=== PATIENT | female | born 1990 | race Caucasian/White ===

== ENCOUNTER 2021-04-10 14:46 | Outpatient (REF) | payer OTHER, SELFPAY ==
[2021-04-10 18:17] LABS: MANUAL DIFF FLAG NO
[2021-04-10 18:22] LABS: Basophils Percent Auto 0.4 % (0-2); Eosinophils Percent Auto 0.5 % (0-4); Hematocrit 42.4 % (37.0-47.0); Hemoglobin 14.4 g/dl (12.0-16.0); Imm Gran Abs Auto 0.01 X10*3/uL (0.00-0.03); Imm Gran Pct Auto 0.2 % (0.0-0.4); Lymphocytes Absolute Auto 1.9 X10*3/uL (1.2-4.9); Lymphocytes Percent Auto 33.6 % (20-40); Mean Corpuscular Hemoglobin 30.6 pg (27.0-33.0); Mean Corpuscular Volume 90.2 fL (80.0-98.0); Mean Platelet Volume 11.1 fL (9.4-12.3); Monocytes Absolute Auto 0.3 X10*3/uL (0.1-1.2); Monocytes Percent Auto 5.8 % (2-11); Neutrophils Absolute Auto 3.3 x10*3/uL (2.0-8.3); Neutrophils Percent Auto 59.5 % (45-73); Platelet Count 200 X10*3/uL (160-400); Red Cell Distribution Width 11.2 % (11.0-16.0); White Blood Count 5.5 X10*3/uL (4.8-10.8)
[2021-04-10 18:30] LABS: Estimated Average Glucose 103 mg/dL; Hemoglobin A1c % 5.2 %
[2021-04-10 18:32] LABS: Alanine Aminotransferase 11 U/L (0-31); Albumin Level 4.5 g/dL (3.5-5.0); Alkaline Phosphatase 40 U/L (39-117); Anion Gap 11 (12-20); Aspartate Amino Transferase 14 U/L (5-31); Bilirubin Total 0.4 mg/dL (0.0-1.0); Blood Urea Nitrogen 10 mg/dL (9-16); Calcium 9.4 mg/dL (8.4-10.2); Carbon Dioxide 26 mmol/L (22-29); Chloride 105 mmol/L (96-108); Estimated Glomerular Filt Rate > 60; Glucose Random 95 mg/dL (60-115); Potassium 3.9 mmol/L (3.3-5.1); Sodium 138 mmol/L (135-145); Total Protein 6.9 g/dL (6.5-8.0)
[2021-04-10 18:54] LABS: Thyroid Stimulating Hormone 1.81 uIU/mL (0.32-4.0); Vitamin D 25-OH Total 33.5 ng/mL (>30)
== END 2021-04-10 14:47 | disposition home or self-care (01) ==
LOC: HO.MANLDS 14:46
PROVIDERS: PCP Physician Assistant; Visit Provider Physician Assistant
DX: Z00.00 Encounter for general adult medical examination without abnormal findings (principal)
CPT/HCPCS: 36415; 80053; 82306; 83036; 84439; 84443; 85025

== ENCOUNTER 2022-03-19 10:16 | Outpatient (REF) | payer OTHER, SELFPAY ==
[2022-03-19 14:55] LABS: Alanine Aminotransferase 12 U/L (0-31); Albumin Level 4.4 g/dL (3.5-5.0); Alkaline Phosphatase 39 U/L (39-117); Anion Gap 11 (12-20); Aspartate Amino Transferase 14 U/L (5-31); Bilirubin Total 0.4 mg/dL (0.0-1.0); Blood Urea Nitrogen 10 mg/dL (9-16); Calcium 9.2 mg/dL (8.4-10.2); Carbon Dioxide 27 mmol/L (22-29); Chloride 105 mmol/L (96-108); Estimated Glomerular Filt Rate > 60; Glucose Random 107 mg/dL (60-115); Potassium 4.3 mmol/L (3.3-5.1); Sodium 139 mmol/L (135-145); Total Protein 6.5 g/dL (6.5-8.0)
[2022-03-19 15:16] LABS: Thyroid Stimulating Hormone 1.24 uIU/mL (0.32-4.0)
[2022-03-19 15:23] LABS: Vitamin B12 684 pg/mL (200-900)
[2022-03-22 08:36] LABS: Follicle Stimulating Hormone 8.9 mIU/mL; Lutenizing Hormone 4.4 mIU/mL
[2022-03-24 13:39] LABS: Lamotrigine Lamictal <0.5 mcg/mL (4.0-18.0)
[2022-03-26 15:23] LABS: Progesterone 0.3 ng/mL
[2022-04-01 04:18] LABS: Estradiol Free 1.32 pg/mL; Estradiol, Ultrasensitive 88 pg/mL
== END 2022-03-19 10:17 | disposition home or self-care (01) ==
LOC: HO.WFDLDS 10:16
PROVIDERS: Absent Provider Internal Medicine; Visit Provider Physician Assistant
DX: R53.83 Other fatigue (principal); G40.009 Localization-related (focal) (partial) idiopathic epilepsy and epileptic syndromes with seizures of localized onset, not intractable, without status epilepticus
CPT/HCPCS: 36415; 80053; 80175; 82607; 82670; 82681; 83001; 83002; 84144; 84443

== ENCOUNTER 2022-06-30 10:09 | Outpatient (REF) | payer OTHER, SELFPAY ==
[2022-07-05 09:03] LABS: Levetiracetam Keppra 9.9 mcg/mL (6.0-46.0)
== END 2022-06-30 10:10 | disposition home or self-care (01) ==
LOC: HO.WFDLDS 10:09
PROVIDERS: Visit Provider Internal Medicine
DX: G40.909 Epilepsy, unspecified, not intractable, without status epilepticus (principal); Z79.899 Other long term (current) drug therapy
CPT/HCPCS: 36415; 80177

== ENCOUNTER 2023-01-27 08:00 | Outpatient (REF) | payer OTHER, SELFPAY ==
[2023-01-27 12:23] LABS: Blood Urea Nitrogen 14 mg/dL (9-16); Estimated Glomerular Filt Rate > 60
[2023-01-31 23:39] LABS: Levetiracetam Keppra 3.7 mcg/mL (6.0-46.0)
== END 2023-01-27 08:01 | disposition home or self-care (01) ==
LOC: HO.WFDLDS 08:00
PROVIDERS: Visit Provider Psychiatry & Neurology Neurology
DX: R56.9 Unspecified convulsions (principal)
CPT/HCPCS: 36415; 80177; 82565; 84520

== ENCOUNTER 2023-03-09 08:34 | Outpatient (REF) | payer OTHER, SELFPAY ==
[2023-03-09 14:36] LABS: Free T4 (Free Thyroxine) 0.91 ng/dL (0.71-1.85); Thyroid Stimulating Hormone 1.42 uIU/mL (0.32-4.0)
== END 2023-03-09 08:35 | disposition home or self-care (01) ==
LOC: HO.MANLDS 08:34
PROVIDERS: Visit Provider Physician Assistant
DX: E03.9 Hypothyroidism, unspecified (principal)
CPT/HCPCS: 36415; 84439; 84443

== ENCOUNTER 2023-05-04 09:46 | Outpatient (REF) | payer OTHER, SELFPAY ==
[2023-05-04 13:03] LABS: MANUAL DIFF FLAG NO
[2023-05-04 13:29] LABS: Basophils Percent Auto 0.6 % (0-2); Eosinophils Absolute Auto 0.1 X10*3/uL (0.0-0.4); Eosinophils Percent Auto 1.3 % (0-4); Hematocrit 43.9 % (37.0-47.0); Hemoglobin 14.7 g/dl (12.0-16.0); Imm Gran Abs Auto 0.01 X10*3/uL (0.00-0.03); Imm Gran Pct Auto 0.2 % (0.0-0.4); Lymphocytes Absolute Auto 1.7 X10*3/uL (1.2-4.9); Mean Corpuscular HGB Conc 33.5 g/dl (31.0-35.0); Mean Corpuscular Hemoglobin 30.8 pg (27.0-33.0); Mean Corpuscular Volume 91.8 fL (80.0-98.0); Mean Platelet Volume 10.5 fL (9.4-12.3); Monocytes Absolute Auto 0.3 X10*3/uL (0.1-1.2); Monocytes Percent Auto 6.5 % (2-11); Neutrophils Absolute Auto 2.7 x10*3/uL (2.0-8.3); Neutrophils Percent Auto 56.4 % (45-73); Platelet Count 229 X10*3/uL (160-400); Red Blood Count 4.78 X10*6/uL (4.20-5.50); Red Cell Distribution Width 11.9 % (11.0-16.0); White Blood Count 4.8 X10*3/uL (4.8-10.8)
[2023-05-04 13:43] LABS: Alanine Aminotransferase 29 U/L (0-31); Albumin Level 4.7 g/dL (3.5-5.0); Alkaline Phosphatase 47 U/L (39-117); Anion Gap 12 (12-20); Aspartate Amino Transferase 26 U/L (5-31); Bilirubin Total 0.3 mg/dL (0.0-1.0); Blood Urea Nitrogen 13 mg/dL (9-16); Calcium 9.6 mg/dL (8.4-10.2); Carbon Dioxide 27 mmol/L (22-29); Chloride 106 mmol/L (96-108); Cholesterol 173 mg/dL (<200); Estimated Glomerular Filt Rate > 60; Glucose Random 88 mg/dL (60-115); HDL Cholesterol 69 mg/dL (>40); Iron 134 mcg/dL (30-160); LDL Cholesterol Calculated 97 mg/dL (<100); Percent Iron Saturation 48 % (15-50); Potassium 4.5 mmol/L (3.3-5.1); Sodium 140 mmol/L (135-145); Total Iron Binding Capacity 281 mcg/dL (228-428); Total Protein 7.6 g/dL (6.5-8.0); Triglycerides 35 mg/dL (<150); Unsaturated Iron Binding 147 ug/dL
[2023-05-04 13:49] LABS: Ferritin 36 ng/mL (10-122); Vitamin D 25-OH Total 77.1 ng/mL (>30)
[2023-05-04 15:07] LABS: Estimated Average Glucose 91 mg/dL; Hemoglobin A1c % 4.8 % (<6.0)
[2023-05-05 12:45] LABS: DHEA Sulfate 125 mcg/dL (19-237); Follicle Stimulating Hormone 8.1 mIU/mL; Lutenizing Hormone 7.2 mIU/mL; Prolactin 5.9 ng/mL
[2023-05-10 16:59] LABS: Progesterone 0.1 ng/mL
[2023-05-12 12:04] LABS: Testosterone, Total 51 ng/dL (2-45)
[2023-05-15 04:53] LABS: Estradiol Free 0.88 pg/mL; Estradiol, Ultrasensitive 63 pg/mL
== END 2023-05-04 09:47 | disposition home or self-care (01) ==
LOC: HO.MANLDS 09:46
PROVIDERS: Visit Provider Physician Assistant
DX: Z00.00 Encounter for general adult medical examination without abnormal findings (principal); N94.6 Dysmenorrhea, unspecified
CPT/HCPCS: 36415; 80053; 80061; 82306; 82627; 82670; 82681; 82728; 83001; 83002; 83036; 83540; 84144; 84146; 84403; 85025

== ENCOUNTER 2024-11-13 09:08 | Outpatient (REF) | payer OTHER, SELFPAY ==
--- OUTSIDE RECORDS SUMMARY | 2024-11-13 10:40 | XMS_ITS | Encounter Summary ---
Author Organization [facility] Address [address] [facility] [address] [place] [address] Phone Care Team Providers Care Cardiology Physician Name Role Phone Nicola Navarro Primary Care Provider [phone] Encounter Details Date Type Department Care Team (Late st Contact Info) Description 07/09/2021 Procedure Pass [facility], Ct Scan - [address] [address] Social History Tobacco Use Types Packs/Day Years Used Date Smoking Tobacco: Never Smokeless Tobacco: Never Alcohol Use Standard Drinks/Week Comments Never 0 (1 standard drink = 0.6 oz pur e alcohol) Comments No Sex and Gender Information Value Date Recorded Sex Assigned at Female 05/12/2021 9:42 AM EDT Legal Sex Female 10:26 PM EDT Gender Identity Female 05/12/2021 9:42 AM EDT Sexual Orientation Not on file documented as of this encounter Functional Status * Calculated C-SSRS Risk Score (Lifetime/Recent) Answer Date of Assessment Author No Risk Indicated 07/09/2021 12:11 PM EDT Sanjuana Lake CNP * [place] Suicide Severity Rating Scale (Screener/Recent Self-Report) Question Answer Date of Assessment Author 1. Wish to be (Past 1 Month) No 07/09/2021 12:11 PM EDT Sanjuana Lake CNP 2. Non-Specific Active Suicidal Thoughts (Past 1 Month) No 07/09/2021 12:11 PM EDT Sanjuana Lake CNP 6. Suicidal Behavior (Lifetime) No 07/09/2021 12:11 PM EDT Sanjuana Lake, SADIE documented as of this encounter Plan of Treatment Not on file documented as of this encounter Visit Diagnoses Not on filedocumented in this encounter Care Teams Cardiology Physician Relationship Specialty Start Date End Date Nicola Navarro DO [email or web address] PCP - General Internal Medicine 05/12/21 documented as of this encounter Additional Source Comments The information contained in this document represents components of the legal health record. It is not the complete legal health record.[facility]
--- OUTSIDE RECORDS SUMMARY | 2024-11-13 10:40 | XMS_ITS | Encounter Summary ---
Author Organization [facility] Address [address] [address] Phone Care Team Providers Care Recorder Of Deeds Name Role Phone Tysontavo Nicola Robb CASTAÑEDA Primary Care Provider [phone] Reason for Referral * MRI/CAT Scan - Closed Specialty Diagnoses / Procedures Referred By Dudley coronado Referred To Contact Radiology Diagnoses Nonintractable epilepsy without status epilepticus, unspecified epilepsy type Procedures MRI Brain CHG MRI BRAIN CHG MRI BRAIN COMBO CHG MRI BRAIN CONTRAST Tony Vega MD [address] [place] [address], [address] [place] [address] Phone: tel: fax: [email or web address] Referral ID Status Reason Start Date Expiration Date Visits Re quested Visits Authorized [id number] Closed 02/03/2023 05/04/2023 1 1 Encounter Details Date Type Department Care Team (Latest Contact Info) Description 02/03/2023 Transcribe Orders Virtual Department [address] [place] [address] Tony Vega MD [address] [place] [address], [address] [place] [address] [email or web address] Nonintractable epilepsy without status epilepticus, unspecified epilepsy type (Primary Dx) Social History Tobacco Use Types Packs/Day Years Used Date Smoking Tobacco: Never Smokeless Tobacco: Never Alcohol Use Standard Drinks/Week Comments Never 0 (1 standard drink = 0.6 oz pur e alcohol) Education Answer Date Recorded Are you interested in more education? Not on anup e 06/18/2022 Are you concerned about learning? Not on file 06/18/2022 No 06/18/2022 No 06/18/2022 Digital Access Answer Date Recorded No 07/17/2022 No 07/17/2022 Reliable internet access at home? Not on file 07/17/2022 Device with a working camera? Not on file Comments No Sex and Gender Information Value Date Recorded Sex Assigned at Female 05/12/2021 9:42 AM EDT Legal Sex Female 10:26 PM EDT Gender Identity Female 05/12/2021 9:42 AM EDT Sexual Orientation Not on file documented as of this encounter Plan of Treatment Not on file documented as of this encounter Results * MRI BRAIN (SEIZURE) WITH AND WITHOUT CONTRAST (02/28/2023 7:54 AM EST) Anatomical Region Laterality Modality Head Magnetic Resonan ce 02/28/2023 5:19 PM EST Impressions 02/28/2023 8:00 PM EST No clear intracranial epileptogenic focus identified. Narrative 02/28/2023 8:00 PM EST MRI BRAIN (SEIZURE) WITH AND WITHOUT CONTRAST Referring clinician's provided indication for this examination in [facility]: Outside Radiology Order; WORSENING EPILEPSY TECHNIQUE: Multi-sequence, multi-planar MRI of the brain was performed before and after intravenous contrast: Seizure protocol 3T. COMPARISON: None FINDINGS: Brain Parenchyma: Left cerebellar and right frontal DVAs. No evidence of acute infarct, mass lesion, or hemorrhage. No definite evidence of mesial temporal sclerosis based on axial images. Ventricular System and Extra-Axial Spaces: Normal. No evidence of midline shift or hydrocephalus. Extracranial Structures: Arterial flow voids in the skull base are present. Procedure Note Shravan Luque MD - 02/28/2023 MRI BRAIN (SEIZURE) WITH AND WITHOUT CONTRAST Referring clinician's provided indication for this examination in [facility]:Outside Radiology Order; WORSENING EPILEPSY TECHNIQUE: Multi-sequence, multi-planar MRI of the brain was performedbefore and after intravenous contrast: Seizure protocol 3T. COMPARISON: None FINDINGS: Brain Parenchyma: Left cerebellar and right frontal DVAs. No evidence ofacute infarct, mass lesion, or hemorrhage. No definite evidence of mesialtemporal sclerosis based on axial images. Ventricular System and Extra-Axial Spaces: Normal. No evidence of midlineshift or hydrocephalus. Extracranial Structures: Arterial flow voids in the skull base arepresent. IMPRESSION: No clear intracranial epileptogenic focus identified. Tony Vega MD IMG MR HEAD/NECK Final Resul t documented in this encounter Visit Diagnoses Diagnosis Nonintractable epilepsy without status epilepticus, unspecified epilepsy type- Primary Nonintractable epilepsy without status epilepticus, unspecified epilepsy type documented in this encounter Care Teams Recorder Of Deeds Relationship Specialty Start Date End Date Nicola Navarro DO [email or web address] PCP - General Internal Medicine 05/12/21 documented as of this encounter Additional Source Comments The information contained in this document represents components of the legal health record. It is not the complete legal health record.[facility]
--- OUTSIDE RECORDS SUMMARY | 2024-11-13 10:40 | XMS_ITS | Clinical Summary ---
Author Organization [facility] Address [address] [address] Phone Care Team Providers Care Hand Salter Name Role Phone Nicola Navarro Primary Care Provider [phone] Allergies No known active allergies Medications vitamin D3-vitamin K2 25 mcg (1,000 unit)-90 mcg ODT disintegrating tablet Vitamin D3 Active calcium carbonate-vitamin D3 625 mg (250 elemental)-125 units Tab Take 1 tablet by mouth daily. Active amoxicillin-clavula tamie (AUGMENTIN) 875-125 mg per tablet Take 1 tablet by mouth every 12 (twelve) hours. Active levETIRAcetam (KEPPRA) 500 MG tablet Take 500 mg by mouth. 3 Active sertraline (ZOLOFT) 100 MG tablet Take 100 mg by mouth nightly at bedtime. at bedtime. Active LORazepam (ATIVAN) 0.5 MG tablet Take 0.5 mg by mouth daily. 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 Assessment & Plan (07/01/2023 12:33 PM EDT): Patient has been evaluated by neurology Seizure activity during luteal phase of menstrual cycle Patient currently on Keppra Discussed ovulation suppression with either continuous OCPs, Aygestin, or Depo-Provera Patient not interested in hormonal medications at this time She will continue to discuss management with her neurologist and follow up once she has made a decision regarding hormonal management Immunizations Immunization Administration Dates Next Due COVID-19 (Pre-12/13) Pfizer Vaccine, mRNA, PF 02/04/2021,02/04/2021,07/16/2020,2020 Rabies Fibroblast Culture 05/26/2021,,05/15/2021,2021 Rabies Immune Globulin 05/12/2021 Tdap 05/12/2021,05/12/2021 Social History Tobacco Use Types Packs/Day Years [...] AM EDT Sexual Orientation Not on file Last Filed Vital Signs Vital Sign Reading Time Taken Comments Blood Pressure 100/60 07/01/2023 9:29 AM EDT Pulse 83 07/09/2021 7:19 PM EDT Temperature 36.6 C (97.9 F) 07/09/2021 7:19 PM EDT Respiratory Rate 18 07/09/2021 7:19 PM EDT Oxygen Saturation 100% 07/09/2021 7:19 PM EDT Inhaled Oxygen Concentration - - Weight 78.2 kg (172 lb 6.4 oz) 07/01/2023 9:29 A M EDT Height 165.1 cm (5' 5 ) 07/01/2023 9:29 AM EDT Body Mass Index 28.69 07/01/2023 9:29 AM EDT Plan of Treatment Health Maintenance Due Date Last Done Comments DEPRESSION SCREENING 2001 HEPATITIS C SCREENING 2007 HIV ONE-TIME SCREENING (18-65 YEARS) 2007 SCREENING FOR DIABETES 07/09/2024 07/09/2021 INFLUENZA VACCINE (#1) 2024 COVID-19 VACCINE ( season) 2024 02/04/2021, 02/04/2021, 07/16/2020, Additional history exists PAP SMEAR 06/30/2026 07/01/2023 Adult Td,Tdap Booster 05/13/2031 05/12/2021, 022 SMOKING STATUS SCREENING (Once After 26 Yrs) Completed 07/01/2023 HEPATITIS A VACCINES Aged Out No long er eligible based on patient's age to complete this topic HIB VACCINES Aged Out No longer eligi ble based on patient's age to complete this topic MENINGOCOCCAL VACCINES (ACWY) Aged Out No longer eligible based on patient's age to complete this topic MENINGOCOCCAL VACCINES (B) Aged Out N o longer eligible based on patient's age to complete this topic PNEUMOCOCCAL VACCINES (0-49 years) Aged Out No longer eligible based on patient's age to complete this topic Medical Devices Not on file Procedures Procedure Name Priority Date/Time Associated Diagnosis Comments PAP TEST Routine 07/01/2023 12:00 AM EDT from Last 3 Months or Most Recently Relevant to Health Maintenance Results * Pap Test (07/01/2023 12:00 AM EDT) 07/01/2023 07/04/2023 9:3 9 AM EDT Narrative SEE NARRATIVE - 07/08/2023 2:15 [place] [address] Independent Consultant: Juanita Irvin MD BILLIARD TABLE REPAIRER Cytology Report FINAL DIAGNOSIS A. PAP SMEAR (THIN PREP) CE: SPECIMEN ADEQUACY: Satisfactory for evaluation; transformation zone present. INTERPRETATION: NEGATIVE FOR INTRAEPITHELIAL LESION OR MALIGNANCY. This specimen was analyzed by the automated ThinPrep Imaging System ([id number].) and the selected adam were reviewed by a rail car driver. Electronically Signed Out By: PRANAY Mercer(ASCP) The Pap test is a screening test primarily for squamous cancers and precursors and has associated false-negative and false-positive results. New technologies such as liquid-based preparations may decrease but will not eliminate all false-negative results. Regular sampling and follow-up of unexplained clinical signs and symptoms are recommended to minimize false negative results. PROCEDURES/ADDENDA HPV Testing (Requested) Ordered Date: 07/04/2023 A. PAP SMEAR (THIN PREP) CE: Human Papilloma Virus Test NEGATIVE for high-risk Human Papilloma Virus types 16, 18, 45 and the Other high risk probe set (Includes 31, 33, 35, 39, 51, 52, 56, 58, 59, 66, 68) Note: Testing performed by PredictAd HR-HPV analysis. Clinical correlation is advised. This HPV test was performed at [facility], [address] [place] [address]. This test has been FDA approved for both SurePath and ThinPrep cervical cytology specimens. The accuracy and precision of this test for all other specimen sources has been verified in the Cytopathology Laboratory of the [facility] and has not been cleared or approved by the U.S. Food and Drug Administration. Clinical correlation is advised. CLINICAL HISTORY Date of Last Menstrual Period: 06-22-2023 Other Clinical Conditions: Screening Pap SPECIMEN SOURCE A: PAP SMEAR (THIN PREP) CE Patient Name: SAMARIA CEBALLOS : 1990 (Age: 33) Sex: F Institution: [facility] Location: [facility] Date of Collection: 07/01/2023 Date of Reported: 07/08/2023 14:15 Results to: Leslie Gonzales us Leslie Ramos MD CYTOLOGY ORDER SOLEDAD Final Result SEE NARRATIVE from Last 3 Months or Most Recently Relevant to Health Maintenance Insurance [facility] DIRECT [employer] [place] [address] [place] [address] [place] [address] [place] [address] [employer] [place] [address] [place] [address] [place] [address] [place] [address] [employer] DIRECT [employer] DIRECT [employer] DIRECT Care Teams Hand Salter Relationship Specialty Start Date End Date Nicola Navarro DO [email or web address] PCP - General Internal Medicine 05/12/21 Additional Source Comments The information contained in this document represents components of the legal health record. It is not the complete legal health record.[facility]
--- OUTSIDE RECORDS SUMMARY | 2024-11-13 10:40 | XMS_ITS | Encounter Summary ---
Author Organization [facility] Address [address] [address] Phone Care Team Providers Care Consulting Psychiatrist Name Role Phone Tysontavo Nicola Robb CASTAÑEDA Primary Care Provider [phone] Reason for Referral * MRI/CAT Scan - Closed Specialty Diagnoses / Procedures Referred By Dudley t Referred To Contact Radiology Diagnoses Localization-related (focal) (partial) idiopathic epilepsy and epileptic syndromes with seizures of localized onset, not intractable, without status epilepticus Procedures MRI Brain CHG MRI BRAIN CHG MRI BRAIN COMBO CHG MRI BRAIN CONTRAST Brittani Carter PA Phone: tel: fax: Referral ID Status Reason Start Date Expiration Date Visits Re quested Visits Authorized [id number] Closed 07/31/2021 10/29/2021 1 1 Encounter Details Date Type Department Care Team (Latest Contact Info) Description 07/24/2021 Transcribe Orders Virtual Department [address] [place] [address] Brittani Carter PA [address] [facility] [place] [address] [place] [address] Localization-related (focal) (partial) idiopathic epilepsy and epileptic syndromes with seizures of localized onset, not intractable, without status epilepticus (Primary Dx) Social History Tobacco Use Types [...] of this encounter Results * MRI BRAIN WITHOUT CONTRAST (08/09/2021 8:21 AM EDT) Anatomical Region Laterality Modality Head Magnetic Resonan ce 08/10/2021 9:18 AM EDT Impressions 08/10/2021 9:30 AM EDT Normal study of the brain. No significant changes from 09/01/2009. Narrative 08/10/2021 9:30 AM EDT HISTORY: Seizure, hallucinations, history of partial seizures for 10 years. COMPARISON: MRI brain 09/01/2009. TECHNIQUE: Exam performed on a 1.5 Linda high-field MRI scanner. Axial T1, T2, T2*, T2 FLAIR and diffusion-weighted imaging with ADC map, sagittal T1 sequences were obtained. FINDINGS: No evidence of intracranial hemorrhage or acute ischemia. No intracranial masses. No suspicious white matter signal abnormalities. The ventricles remain normal in size and configuration. Basal cisterns are patent. Normal flow-voids the base of the skull. The paranasal sinuses and mastoid air cells are clear. No other significant changes. Procedure Note Marky Reyes MD - 08/10/2021 HISTORY: Seizure, hallucinations, history of partial seizures for 10years. COMPARISON: MRI brain 09/01/2009. TECHNIQUE: Exam performed on a 1.5 Linda high-field MRI scanner. AxialT1, T2, T2*, T2 FLAIR and diffusion-weighted imaging with ADC map,sagittal T1 sequences were obtained. FINDINGS: No evidence of intracranial hemorrhage or acute ischemia. No intracranialmasses. No suspicious white matter signal abnormalities. The ventricles remain normal in size and configuration. Basal cisterns arepatent. Normal flow-voids the base of the skull. The paranasal sinuses and mastoid air cells are clear. No other significant changes. IMPRESSION: Normal study of the brain. No significant changes from 09/01/2009. Brittani FISH IMG MR HEAD/NECK Final Resu lt documented in this encounter Visit Diagnoses Diagnosis Localization-related (focal) (partial) idiopathic epilepsy and epileptic syndromes with seizures of localized onset, not intractable, without status epilepticus- Primary Localization-related (focal) (partial) idiopathic epilepsy and epileptic syndromes with seizures of localized onset, not intractable, without status epilepticus documented in this encounter Care Teams Consulting Psychiatrist Relationship Specialty Start Date End Date Nicola Navarro DO [email or web address] PCP - General Internal Medicine 05/12/21 documented as of this encounter Additional Source Comments The information contained in this document represents components of the legal health record. It is not the complete legal health record.[facility]
--- OUTSIDE RECORDS SUMMARY | 2024-11-13 10:40 | XMS_ITS | Encounter Summary ---
Author Organization [facility] Address [address] [facility] [address] [place] [address] Phone Care Team Providers Care Silk Trimmer Name Role Phone Nicola Navarro DO Primary Care Provider [phone] Encounter Details Date Type Department Care Team (Late st Contact Info) Description 07/24/2021 Procedure Pass [facility], [address] [address] Social History Tobacco Use Types Packs/Day Years [...] on filedocumented in this encounter Care Teams Silk Trimmer Relationship Specialty Start Date End Date Nicola Navarro DO PCP - General Internal Medicine 05/12/21 documented as of this encounter Additional Source Comments The information contained in this document represents components of the legal health record. It is not the complete legal health record.[facility]
--- OUTSIDE RECORDS SUMMARY | 2024-11-13 10:40 | XMS_ITS | Encounter Summary ---
Author Organization [facility] Address [address] [facility] [address] [place] [address] Phone Care Team Providers Care Phd Internship Name Role Phone Nicola Navarro DO Primary Care Provider [phone] Encounter Details Date Type Department Care Team (Late st Contact Info) Description 02/03/2023 Procedure Pass [facility], [address] [address] Social History Tobacco Use Types Packs/Day Years [...] on filedocumented in this encounter Care Teams Phd Internship Relationship Specialty Start Date End Date Nicola Navarro DO [email or web address] PCP - General Internal Medicine 05/12/21 documented as of this encounter Additional Source Comments The information contained in this document represents components of the legal health record. It is not the complete legal health record.[facility]
--- OUTSIDE RECORDS SUMMARY | 2024-11-13 10:40 | XMS_ITS | Encounter Summary ---
Author Organization [facility] Address [address] [facility] [address] [place] [address] Phone Care Team Providers Care Binder Stripper Machine Name Role Phone Nicola Navarro Primary Care Provider [phone] Encounter Details Date Type Department Care Team (Late st Contact Info) Description 07/09/2021 Procedure Pass [facility], Ct Scan - [address] [address] Social History Tobacco Use Types Packs/Day Years [...] 12:11 PM EDT Sanjuana Lake CNP * [place] Suicide Severity Rating Scale (Screener/Recent Self-Report) Question [...] on filedocumented in this encounter Care Teams Binder Stripper Machine Relationship Specialty Start Date End Date Nicola Navarro DO [email or web address] PCP - General Internal Medicine 05/12/21 documented as of this encounter Additional Source Comments The information contained in this document represents components of the legal health record. It is not the complete legal health record.[facility]
--- OUTSIDE RECORDS SUMMARY | 2024-11-13 10:40 | XMS_ITS | Encounter Summary ---
Author Organization [facility] Address [address] [address] Phone Care Team Providers Care Ground Support Agent Name Role Phone Nicola Navarro Primary Care Provider [phone] Reason for Referral * Hospital - Outpatient - Closed Specialty Diagnoses / Procedures Referred By Dudley coronado Referred To Contact Diagnoses Seizure disorder Procedures EEG Brittani Carter PA Phone: tel: fax: Referral ID Status Reason Start Date Expiration Date Visits Re quested Visits Authorized [id number] Closed 07/24/2021 07/24/2022 1 1 Encounter Details Date Type Department Care Team (Latest Contact Info) Description 07/24/2021 Transcribe Orders Virtual Department [address] [place] [address] Brittani Carter PA [address] [place] [address] Seizure disorder (Primary Dx) Social History Tobacco Use Types [...] documented as of this encounter Results * EEG (08/06/2021 2:10 PM EDT) Anatomical Region Laterality Modality EEG Narrative 08/09/2021 10:32 PM EDT [facility] ELECTROENCEPHALOGRAPHY (EEG) LAB INTRODUCTION: The patient is a 31 year old woman referred for a question of seizures. MEDICATIONS: keppra CONDITION OF RECORDING: Digitally recorded EEG with the patient awake, drowsy and asleep with no instructions for sleep deprivation. All electrodes were applied in accordance with the International 10-20 System. A single channel EKG lead was recorded to help identify artifact. SPECIAL PROCEDURES: None. EEG DESCRIPTION: Cerebral electrical activity with the patient awake was characterized by a well organized background with a 11-12 Hz, 30-60 uV posterior maximum reactive alpha rhythm and lower voltage frontally maximum beta activity. Intermittent arrhythmic 10-30 uV theta and delta activity was admixed. The patient became drowsy but did not enter stage II sleep. Photic stimulation yielded a modest driving response. Hyperventilation was not performed. INTERPRETATION: This routine EEG, obtained with the patient awake and drowsy, is within normal limits. No epileptiform activity or persistent focal asymmetries occurred. COMMENT: If an epileptic seizure disorder is still suspected, more prolonged EEG recording such as 24 hour ambulatory EEG monitoring may be useful. Evens Ruiz MD [facility] Neurology Brittani FISH NEUROLOGY ORDERABLES Final Result documented in this encounter Visit Diagnoses Diagnosis Seizure disorder- Primary Unspecified epilepsy without mention of intractable epilepsy Seizure disorder Unspecified epilepsy without mention of intractable epilepsy documented in this encounter Care Teams Ground Support Agent Relationship Specialty Start Date End Date Nicola Navarro DO [email or web address] PCP - General Internal Medicine 05/12/21 documented as of this encounter Additional Source Comments The information contained in this document represents components of the legal health record. It is not the complete legal health record.[facility]
--- OUTSIDE RECORDS SUMMARY | 2024-11-13 10:40 | XMS_ITS | Clinical Summary ---
Author Organization [facility] Address [address] [place] [address] Care Team Providers Care Cable Splicer Assistant Name Role Phone Nicola Navarro Primary Care Provider [phone] Allergies No known active allergies Medications LORazepam (ATIVAN) 0.5 mg tablet Take 0.5 mg by mouth daily as needed for seizures. 03/21/2023 Active sertraline (ZOLOFT) 100 mg tablet Take 100 mg by mouth once a day. 03/03/2023 Active calcium carbonate-vitami n D3 250 mg-125 units tablet tablet Take 1 tablet by mouth once a day. Active Social History Tobacco Use Types Packs/Day Years Used Date Smoking Tobacco: Never Assessed Comments Unknown Sex and Gender Information Value Date Recorded Sex Assigned at Female 04/14/2023 10:05 AM EST Legal Sex Female 7:50 AM EST Gender Identity Female 04/14/2023 10:05 AM EST Sexual Orientation Lesbian or Sam 04/14/2023 10 :05 AM EST Last Filed Vital Signs Vital Sign Reading Time Taken Comments Blood Pressure 128/84 04/12/2023 1:16 PM EST Pulse 62 04/12/2023 1:16 PM EST Temperature 36.2 C (97.1 F) 04/12/2023 1:16 PM EST Respiratory Rate 20 04/12/2023 1:16 PM EST Oxygen Saturation - - Inhaled Oxygen Concentration - - Weight 75.8 kg (167 lb) 04/12/2023 1:16 PM EST Height - - Body Mass Index - - Plan of Treatment Health Maintenance Due Date Last Done Comments Cervical Cancer Screening 1989 HIV Screening 1989 HPV and Pap Smear 1989 Hepatitis C Screening 1989 Pap Smear 1989 Varicella Vaccines (1 of 2 - 13+ 2-dose series) 2002 Hepatitis B Vaccines (1 of 3 - 19+ 3-dose series) 2008 Alcohol/Substance Use Screening 02/22/2024 Depression Screening and Follow-Up 02/22/2024 Social Drivers of Health Annual Screening 02/22/2024 COVID-19 Vaccine (3 - 2024-2 6 season) 2024 02/04/2021, 07/16/2020 Influenza Vaccine (#1) 2024 DTaP,Tdap,and Td Vaccines (2 - Td or Tdap) 05/13/2031 05/12/2021 RSV Vaccine (60+ years old and patients) (1 - 1-dose 75+ series) 2064 Pneumococcal Vaccine: Pediatric (0-5 Years) and At-Risk Patients (6-50 Years) Aged Out No longer eligible based on patient's age to complete this topic Insurance [facility] Care Teams Cable Splicer Assistant Relationship Specialty Start Date End Date Nicola Navarro [address] [place] [id number] PCP - General Internal Medicine 02/03/23
[2024-11-13 14:25] LABS: Alanine Aminotransferase 18 U/L (0-31); Albumin Level 4.3 g/dL (3.5-5.0); Alkaline Phosphatase 41 U/L (39-117); Anion Gap 8 (12-20); Aspartate Amino Transferase 22 U/L (5-31); Blood Urea Nitrogen 13 mg/dL (9-16); Calcium 8.8 mg/dL (8.4-10.2); Carbon Dioxide 26 mmol/L (22-29); Chloride 111 mmol/L (96-108); Estimated Glomerular Filt Rate > 60; Potassium 3.8 mmol/L (3.3-5.1); Sodium 141 mmol/L (135-145); Total Protein 6.5 g/dL (6.5-8.0)
== END 2024-11-13 09:09 | disposition home or self-care (01) ==
LOC: HO.MANLDS 09:08
PROVIDERS: Visit Provider Physician Assistant
DX: N94.6 Dysmenorrhea, unspecified (principal)
CPT/HCPCS: 36415; 80053; 82533; 82627; 82670; 82672; 83001; 83002; 84144; 84146; 84403; 84443